=== PATIENT | male | born 1950 | race Caucasian/White ===

== ENCOUNTER 2017-04-25 06:13 | Day surgery (SDC) | payer OTHER ==
[2017-04-25] VITALS (8 sets, daily range): BP systolic 118–151; BP diastolic 77–97; PULSE 73–79; RESP 18–20; TEMP 97.9–98.1; O2SAT 95–98
[~2017-04-25] VITALS: Ht 167.6 cm; Wt 71.0 kg
[2017-04-25 07:15] LABS: AUTOMATED NEUTROPHIL # 2.7 TH/MM3 (1.8-7.7); BASOPHIL % 0.7 % (0.0-2.0); EOSINOPHIL # 0.2 TH/MM3 (0-0.4); EOSINOPHIL % 3.3 % (0.0-4.0); HEMATOCRIT 43.1 % (39.0-51.0); HEMO FLAGS DIFF FINAL; LYMPH % 24.5 % (9.0-44.0); LYMPHOCYTE # 1.2 TH/MM3 (1.0-4.8); MEAN CELL VOLUME 99.6 FL (80.0-100.0); MEAN CORPUSCULAR HEMOGLOBIN 35.1 PG (27.0-34.0); MEAN CORPUSCULAR HGB CONC 35.2 % (32.0-36.0); MONO % 14.3 % (0.0-8.0); NEUT % 57.2 % (16.0-70.0); PLATELET COUNT 137 TH/MM3 (150-450); RED BLOOD COUNT 4.33 MIL/MM3 (4.50-5.90); RED CELL DISTRIBUTION WIDTH 13.3 % (11.6-17.2); WHITE BLOOD COUNT 4.7 TH/MM3 (4.0-11.0)
[2017-04-25] MEDS ORDERED: SODIUM CHLOR 0.9% 1000 ML IV SCH (07:15)
[2017-04-25] MEDS ORDERED: MELO7.5T4 PO (07:17)
[2017-04-25] MEDS ORDERED: AMLO5 PO (07:17)
[2017-04-25] MEDS ORDERED: AMBI5TAB PO (07:17)
[2017-04-25] MEDS ORDERED: ACEB200C PO (07:17)
[2017-04-25] MEDS ORDERED: ALPH50CA PO (07:17)
[2017-04-25] MEDS ORDERED: HYDR25TA5 PO (07:17)
[2017-04-25] MEDS ORDERED: MULT-65 PO (07:17)
[2017-04-25] MEDS ORDERED: BENA20TA PO (07:17)
[2017-04-25 07:24] LABS: INTERNATIONAL NORMALIZED RATIO 1.1 RATIO; PROTHROMBIN TIME - PATIENT 11.9 SEC (9.8-11.6)
[2017-04-25 07:26] LABS: APTT (PATIENT) 29.8 SEC (24.3-30.1)
[2017-04-25] MEDS ORDERED: LIDOCAINE HCL 1% 20 ML VIAL ONE (07:43)
[2017-04-25] MEDS ORDERED: fentaNYL CITRATE 250 MCG/5 ML AMP ONE (08:07)
[2017-04-25] MEDS ORDERED: MIDAZOLAM HCL 5 MG/5 ML VIAL ONE (08:07)
[2017-04-25] MEDS ORDERED: THROMBIN (TOPICAL) 5,000 UNIT VIAL ONE (08:37)
--- NOTE | 2017-04-25 09:08 | RADRPT ---
EXAM DATE/TIME: 04/25/2017 08:14 [place] COMPARISON: No previous studies available for comparison. INDICATIONS : Liver mass. History of hepatitis C infection. SEDATION TIME: 30 minutes BIOPSY SITE: liver MEDICATION(S): 1.) 4 mg midazolam (Versed) IV 2.) 200 mcg fentanyl (Sublimaze) IV DEVICE(S): 1.) 17 gauge coaxial 2.) 18 gauge Temno core biopsy needle 15cm MEDICAL HISTORY : Hepatitis C. SURGICAL HISTORY : None. ENCOUNTER: Initial ACUITY: 1 day PAIN SCORE: 0/10 LOCATION: liver A total of four core specimen(s) were obtained and sent to the laboratory for pathologic evaluation. PROCEDURE: 1. CT guided liver biopsy. 2. Conscious sedation with continuous EKG and oximetry monitoring. Prior to the procedure informed consent was obtained. The patient's prior MRI was reviewed and demons trated an exophytic arterially enhancing mass in the left lobe. Using automated exposure control and adjustment of the mA and/or kV according to patient size, radiat ion dose was kept as low as reasonably achievable to obtain optimal diagnostic quality images. The site was prepped in a sterile fashion. Full sterile technique was used, including cap, mask, blake rile gloves and gown and a large sterile sheet. Hand hygiene and 2% chlorhexidine and/or betadine/al cohol prep was utilized per protocol for cutaneous antisepsis. The skin and subcutaneous tissues wer e infiltrated with local anesthetic solution. With CT guidance the left lobe liver mass was localized. Biopsy was performed using the prescribed ne edle as above. Adequate hemostasis was obtained with compression at the puncture site. Follow-up CT scan reveals no hemorrhage. The patient tolerated the procedure well and there were no complications. The patient was returned to the Radiology Outpatient Unit in stable condition. CONCLUSION: Uncomplicated CT guided biopsy of the left lobe liver mass. Fidel Mayer MD on April 25, 2017 at 9:05 Board Certified Radiologist. This report was verified electronically.
== END 2017-04-25 12:39 | disposition home or self-care (01) ==
LOC: HRAD 06:13 → HRIP 06:14 → HRAD 12:39
PROVIDERS: ATTEND Specialist
DX: R16.0 Hepatomegaly, not elsewhere classified (principal); B19.20 Unspecified viral hepatitis C without hepatic coma
CPT/HCPCS: 47000; 77012; 85025; 85610; 85730; 88307; J2250; J3010; J7030; 88313; 88341; 88342